=== PATIENT | male | born 1945 | race Caucasian/White ===

== ENCOUNTER → 2016-07-16 | Day surgery (SDC) | payer MEDICARE ==
[~2016-07-16] MED LIST: ASPI325T PO; IBUP200T2 PO; LIDOCAINE HCL 1% PF 30 ML VIAL OTHER ONE; MEPERIDINE HCL 25 MG/ML VIAL IV ONE; PRIN20TA2 PO; PROPOFOL 200 MG/20 ML AMP IV ONE; SODIUM CHLORIDE 0.9% 10 ML VIAL ONE; TRAM50TA PO; methylPREDNISolone ACETATE 80 MG/ML VIAL ONE
--- NOTE | 2016-07-23 20:53 | M6 ---
cc: DENNIS PAUL M.D. DATE: 07/16/2016 DATE OF : 1945. PROCEDURE: Fluoroscopically guided L5-S1 translaminar epidural steroid injection. History and physical was completed and signed. Consent was signed. Procedure site was marked. Medications were listed and reconciled. Pain score was recorded. Allergies were noted. Time out was taken. Fluoroscopy time was recorded where applicable. Sedation was administered or directed by Dr. Paul. The patient was given oxygen. The patient was monitored by a registered nurse. Total procedure time was greater than 15 minutes. PROCEDURE NOTE: IV was started, blood pressure cuff, pulse oximeter and EKG were applied. The patient was placed in the prone position on a Maikol table sedated with small amounts of propofol titrated to effect. Vital signs were monitored and remained stable throughout the procedure. The lumbar area was prepped with alcohol and 10% Betadine solution and draped with sterile drapes. Fluoroscopy was used to visualize the L5-S1 translaminar space. The skin was infiltrated with 1% Xylocaine using a 27 gauge needle, then a 3-1/2 inch 80-gauge Walton needle was advanced using fluoroscopic guidance and the laik-lo-[id number] technique into the epidural space at L5-S1 slightly to the left of the midline. There was negative aspiration for blood or any other type of fluid and the patient was given 10 mL of half percent Xylocaine 80 mg of Depo-Medrol. Following this he was taken to the recovery room with stable vital signs neurologically intact. W. MD JOSE Colbert/SHARMILA /9:46 AM /8:49 PM
== END | disposition home or self-care (01) ==
LOC: PHSDC 08:28
PROVIDERS: ATTEND Pain Medicine Interventional Pain Medicine
DX: M54.5 Low back pain (principal)
CPT/HCPCS: 62323; 99152; J1040; J2175

== ENCOUNTER → 2016-12-10 | Day surgery (SDC) | payer MEDICARE ==
[~2016-12-10] MED LIST changes: +BUPIVACAINE HCL PF 0.75% 30 ML VIAL ONE; -LIDOCAINE HCL 1% PF 30 ML VIAL OTHER ONE; -MEPERIDINE HCL 25 MG/ML VIAL IV ONE; -SODIUM CHLORIDE 0.9% 10 ML VIAL ONE; +TRIAMCINOLONE ACETONIDE 40 MG/ML VIAL I-ARTICULR ONE; -methylPREDNISolone ACETATE 80 MG/ML VIAL ONE
--- NOTE | 2016-12-11 09:23 | M6 ---
cc: DENNIS PAUL M.D. DATE: 12/10/2016 DATE OF : 1945 PROCEDURE Fluoroscopically guided injection bilateral lumbar facet joints (bilateral L3-4, L4-5 and L5-S1 facet joints). History and physical was completed and signed. Consent was signed. Procedure site was marked. Medications were listed and reconciled. Pain score was recorded. Allergies were noted. Time out was taken. Fluoroscopy time was recorded where applicable. Sedation was administered or directed by Dr. Paul. The patient was given oxygen. The patient was monitored by a registered nurse. Total procedure time was greater than 15 minutes. IV was started, blood pressure cuff, pulse oximeter and EKG were applied. The patient was placed in the prone position on a Maikol table, sedated with small amounts of propofol titrated to effect. Vital signs were monitored and remained stable throughout the procedure. The lumbar area was prepped with alcohol and 10% Betadine solution and draped with sterile drapes. Fluoroscopy was used in a Du dog view to clearly visualize the bilateral lumbar facet joints at L3-4, L4-5 and L5-S1. Separate sterile 3-1/2-inch 25-gauge spinal needles were advanced into these joints under fluoroscopic guidance. There was negative aspiration for blood or any other type of fluid. At each location the patient was given 1 mL of Marcaine 0.75% which contained 10 mg of Kenalog. Following the procedure the patient was taken to the recovery room with stable vital signs, neurologically intact. He will be evaluated immediately and with followup to determine if he has a subjective decrease in his usual pain and a corresponding objective increase in his functional capabilities. WMD JOSE Tinsley/JUDITL /9:37 AM /9:21 AM
== END | disposition home or self-care (01) ==
LOC: PHSDC 07:59
PROVIDERS: ATTEND Pain Medicine Interventional Pain Medicine
DX: M54.5 Low back pain (principal)
CPT/HCPCS: 64493; 64494; 64495; 99152; J3301

== ENCOUNTER → 2017-04-15 | Day surgery (SDC) | payer MEDICARE ==
[~2017-04-15] MED LIST changes: -BUPIVACAINE HCL PF 0.75% 30 ML VIAL ONE; +LIDOCAINE HCL 1% 30 ML VIAL INFIL ONE; +MEPERIDINE HCL 25 MG/ML VIAL IV ONE; +MIDAZOLAM HCL 2 MG/2 ML VIAL IV ONE; +SODIUM CHLORIDE 0.9% 10 ML VIAL ONE; -TRIAMCINOLONE ACETONIDE 40 MG/ML VIAL I-ARTICULR ONE; +methylPREDNISolone ACETATE 40 MG/ML VIAL I-ARTICULR ONE
--- NOTE | 2017-04-15 20:41 | M6 ---
cc: Nikki PAUL DATE 04/15/2017 1945 PROCEDURE Radiofrequency rhizotomy bilateral lumbar facet joints (bilateral L3-4, L4-5, L5-S1 facet joints). History and physical was completed and signed. Consent was signed. Procedure site was marked. Medications were listed and reconciled. Pain score was recorded. Allergies were noted. Time out was taken. Fluoroscopy time was recorded where applicable. Sedation was administered or directed by Dr. Paul. The patient was given oxygen. The patient was monitored by a registered nurse. Total procedure time was greater than 15 minutes. Radiofrequency rhizotomy multiple bilateral L3-4, L4-5, L5-S1 lumbar facet joints. Three levels are being done because imaging studies show arthritis in all lumbar facet joints and because each facet joint is innervated by the medial branches from the nerves above and below that particular joint. The patient reported 50% or greater pain relief from previous diagnostic facet joint blocks done with fluoroscopic guidance. PROCEDURE IN DETAIL An IV was started, blood pressure cuff, pulse oximeter and EKG were applied. The patient was placed in the prone position on a Maikol table, sedated with small amounts of Versed and fentanyl and propofol titrated to effect. Vital signs were monitored and remained stable throughout the procedure. The lumbar area was scrubbed with antimicrobial solution, prepped with 10% Betadine solution, draped with sterile drapes. Fluoroscopy was used in a slightly oblique angle (Du dog view) to clearly visualize the target areas which were the cephalad most medial angle of the transverse processes as they met the pedicle in the anatomical location of the medial branch of the posterior primary ramus on the ___ side at ___ levels and the angle of the ___ sacral ala. The skin was infiltrated with 1% Xylocaine using a 27 gauge needle. An insulated 20 gauge radiofrequency needle with a 10 mm curved tip was advanced to the above-mentioned target areas. Fluoroscopy was used to confirm the needle was properly placed and not near the nerve root. At no time did the patient report any paresthesias down the lower extremity. Once properly positioned thermal lesions took place at 80 degrees Centigrade x 100 seconds at each location. Then, a small amount of Depo-Medrol was injected at each location for a total of 40 mg of Depo-Medrol. Following this the patient was taken to the recovery room with stable vital signs, neurologically intact. W. MD JOSE Colbert/ /8:22 AM /8:35 PM
== END | disposition home or self-care (01) ==
LOC: PHSDC 06:50
PROVIDERS: ATTEND Pain Medicine Interventional Pain Medicine
DX: M54.5 Low back pain (principal)
CPT/HCPCS: 64635; 64636; 99152; 99153; J1030; J2175; J2250

== ENCOUNTER → 2017-05-29 | Day surgery (SDC) | payer MEDICARE ==
[~2017-05-29] MED LIST changes: +ASPI-183 PO; -ASPI325T PO; -IBUP200T2 PO; +IBUP200T47 PO; -LIDOCAINE HCL 1% 30 ML VIAL INFIL ONE; +LIDOCAINE HCL 1% 30 ML VIAL NERV BLOCK ONE; -MEPERIDINE HCL 25 MG/ML VIAL IV ONE; -MIDAZOLAM HCL 2 MG/2 ML VIAL IV ONE; -methylPREDNISolone ACETATE 40 MG/ML VIAL I-ARTICULR ONE; +methylPREDNISolone ACETATE 80 MG/ML VIAL ONE
--- NOTE | 2017-05-29 12:08 | M6 ---
cc: DENNIS PAUL M.D. DATE: 05/29/2017 DATE OF 1945 PROCEDURE Fluoroscopically guided L5-S1 interlaminar epidural steroid injection. History and physical was completed and signed. Consent was signed. Procedure site was marked. Medications were listed and reconciled. Pain score was recorded. Allergies were noted. Time out was taken. Fluoroscopy time was recorded where applicable. Sedation was administered or directed by Dr. Paul. The patient was given oxygen. The patient was monitored by a registered nurse. Total procedure time was greater than 15 minutes. PROCEDURE NOTE IV was started. Blood pressure cuff, pulse oximeter and EKG were applied. The patient was placed in the prone position on a Maikol table, sedated with small amounts of propofol titrated to effect. Vital signs were monitored and remained stable throughout the procedure. The lumbar area was prepped with alcohol and 10% Betadine solution and draped with sterile drapes. Fluoroscopy was used to visualize the L5-S1 interlaminar space. The skin was infiltrated with 1% Xylocaine using a 27-gauge needle. Then a 3-1/2-inch, 18-gauge Walton needle was advanced using fluoroscopic guidance and the peuh-du-yuyhfumvtj technique into the epidural space at L5-S1 slightly to the left of the midline. There was negative aspiration for blood or any other type of fluid and the patient was given 10 mL of 0.5% Xylocaine and 80 mg of Depo-Medrol. Following the procedure the patient was taken to the recovery room with stable vital signs, neurologically intact. W. MD JOSE Colbert/MIKE /8:45 AM /12:00 PM
== END | disposition home or self-care (01) ==
LOC: PHSDC 07:02
PROVIDERS: ATTEND Pain Medicine Interventional Pain Medicine
DX: M54.5 Low back pain (principal); R20.0 Anesthesia of skin
CPT/HCPCS: 62323; 99152; J1040

== ENCOUNTER 2017-06-29 11:17 | Emergency (ER) | payer MEDICARE ==
[~2017-06-29] VITALS: Ht 177.8 cm; Wt 90.0 kg
[~2017-06-29 11:17] MED LIST changes: -LIDOCAINE HCL 1% 30 ML VIAL NERV BLOCK ONE; -PROPOFOL 200 MG/20 ML AMP IV ONE; -SODIUM CHLORIDE 0.9% 10 ML VIAL ONE; -methylPREDNISolone ACETATE 80 MG/ML VIAL ONE
[2017-06-29 11:23] VITALS: BP 138/84; PULSE 90; RESP 16; TEMP 98.3; O2SAT 95
[2017-06-29] MEDS ORDERED: OMEP20TA93 PO (11:35)
[2017-06-29] MEDS ORDERED: ZITHTAB PO (11:51)
[2017-06-29] MEDS ORDERED: BENZ1CAP51 PO (11:51)
[2017-06-29] MEDS ORDERED: PRED20 PO (11:51)
--- NOTE | 2017-06-29 11:52 | PD ---
HPI Chief Complaint: Cold / Flu Symptoms Time Seen by Provider: 11:31 Travel History International Travel<30 days: No Contact w/Intl Traveler<30days: No Traveled to known affect area: No History of Present Illness HPI 72-year-old male presents to the emergency department for evaluation of cold symptoms for 4 days. Patient reports cough, nasal congestion, intermittent headaches. He denies any fevers or chills. He denies any history of asthma, COPD, pneumonia. He is currently a nonsmoker. Patient states he has had 2 episodes like these in the past that started because of allergies. Patient denies any chest pain or shortness breath. No abdominal pain. No nausea, vomiting, diarrhea. Moderate severity. No exacerbating or alleviating factors. Patient states symptoms are slightly improved. PFSH Past Medical History Arthritis: Yes Blood Disorders: No Cancer: No Cardiovascular Problems: Yes Cerebrovascular Accident: Yes (TIA 1999) Endocrine: No Genitourinary: No Hypertension: Yes Immune Disorder: No Musculoskeletal: Yes Neurologic: No Psychiatric: No Reproductive: No Respiratory: No Influenza Vaccination: No Past Surgical History Abdominal Surgery: Yes (appendectomy) Appendectomy: Yes Eye Surgery: Yes (BILATERAL CATARACTS) Joint Replacement: Yes (LEFT HIP) Tonsillectomy: Yes Other Surgery: Yes Social History Alcohol Use: Yes (beer daily) Tobacco Use: No Substance Use: No Allergies-Medications (Allergen,Severity, Reaction): Uncoded Allergies: ANTIHISTAMINES (Allergy, Severe, 07/05/11) Reported Meds & Prescriptions Reported Meds & Active Scripts Active Reported Omeprazole 20 Mg Tab 20 Mg PO DAILY Aspirin 325 Mg Tab 325 Mg PO DAILY Ibuprofen 200 Mg Tab 200 Mg PO Q4H PRN Prinivil (Lisinopril) 20 Mg Tab 20 Mg PO DAILY Tramadol (Tramadol HCl) 50 Mg Tab 50 Mg PO Q4H PRN Review of Systems Except as stated in HPI: all other systems reviewed are Neg Physical Exam Narrative GENERAL: Well-nourished, well-developed male patient, afebrile. SKIN: Focused skin assessment warm/dry. HEAD: Normocephalic. Atraumatic. ENT: Mucosa pink and moist. No erythema or exudates. No uvular edema. No uvular , palatal, or tonsillar deviation. Airway patent. Nasal turbinates appear normal without nasal blood, purulent drainage or septal hematoma. Bilateral tympanic membranes are clear without erythema or perforation. EYES: No scleral icterus. No injection or drainage. NECK: Supple, trachea midline. No JVD or lymphadenopathy. CARDIOVASCULAR: Regular rate and rhythm without murmurs, gallops, or rubs. RESPIRATORY: Breath sounds equal bilaterally. No accessory muscle use. Lungs sounds are clear to auscultation. GASTROINTESTINAL: Abdomen soft, non-tender, nondistended. MUSCULOSKELETAL: No cyanosis, or edema. BACK: Nontender without obvious deformity. No CVA tenderness. Data Data Last Documented VS Vital Signs Date Time Temp Pulse Resp B/P (MAP) Pulse Ox O2 Delivery O2 Flow Rate FiO2 06/29/17 11:23 98.3 90 16 138/84 (102) 95 MDM Medical Decision Making Medical Screen Exam Complete: Yes Emergency Medical Condition: Yes Medical Record Reviewed: Yes Differential Diagnosis URI versus bronchitis versus pneumonia Narrative Course 72-year-old male presents to the emergency department for evaluation of cold symptoms for 4 days. Patient appears well on exam. Lungs sounds are clear to auscultation. Vital signs are stable. Patient will be discharged with a prescription for prednisone, azithromycin, benzonatate capsules. He is encouraged to follow his primary care physician. He is return here for any acute worsening of symptoms. He verbalizes agreement and understanding. The patient was discharged in stable condition with instructions, including return instructions and follow up instructions. Diagnosis Primary Impression: Upper respiratory infection Qualified Codes: J06.9 - Acute upper respiratory infection, unspecified Referrals: Primary Care Physician call for appointment Patient Instructions: General Instructions, Upper Respiratory Infection (ED) Additional Instructions: Take antibiotic as directed until gone. Take prednisone as directed. Take benzonatate capsules as directed as needed for cough. Follow-up with your primary care physician. Return to the emergency department for any acute worsening of symptoms. Med/Other Pt SpecificInfo: Prescription(s) given Scripts Benzonatate (Benzonatate) 200 Mg Cap 200 MG PO TID Y for COUGH, #21 CAP 0 Refills Prov: Cathy Coronado 06/29/17 Azithromycin (Zithromax Z-Billy) 250 Mg Dspk 250 MG PO DIRECTED for Infection, #1 DSPK 0 Refills 500 MG (2 tabs) day 1, then 1 tab days 2-5. Prov: Cathy Coronado 06/29/17 Prednisone (Prednisone) 20 Mg Tab 40 MG PO DAILY for 5 Days, #10 TAB 0 Refills Take 40 mg (2 tablets) daily for 5 days Prov: Cathy Coronado 06/29/17 Disposition: 01 DISCHARGE HOME Condition: Stable Cathy Coronado Jun 29, 2017 11:52
== END 2017-06-29 12:24 | disposition home or self-care (01) ==
LOC: PHED 11:17 → PHEFT 12:24
DX: J06.9 Acute upper respiratory infection, unspecified (principal); I10 Essential (primary) hypertension; M19.90 Unspecified osteoarthritis, unspecified site; Z72.89 Other problems related to lifestyle; Z79.82 Long term (current) use of aspirin; Z86.73 Personal history of transient ischemic attack (TIA), and cerebral infarction without residual deficits
CPT/HCPCS: 99284